=== PATIENT | female | born 1940 | race African-American/Black ===

== ENCOUNTER 2017-02-06 17:38 | Emergency (ER) | payer MEDICARE ==
[~2017-02-06] VITALS: Ht 170.2 cm; Wt 81.6 kg
[2017-02-06] MEDS ORDERED: ONDANSETRON 4 MG/2 ML VIAL IM ONE (17:45)
[2017-02-06] MEDS ORDERED: MORPHINE SULFATE 4 MG/1 ML DISP.SYRIN IM ONE ×2 (17:45→19:15)
--- NOTE | 2017-02-06 17:54 | NUR ---
PT IS CURRENTLY TRES EMOTIONAL AND AGITATED ABOUT WHAT HAPPENED THAT SHE CANNOT REMEMBER HER MEDS AT THE PRESENT TIME.
[2017-02-06] MEDS ORDERED: LOPE2CAP PO (18:13)
[2017-02-06] MEDS ORDERED: [UNRECOGNIZED DRUG - CODE] PO ×2 (18:13→18:16)
[2017-02-06] MEDS ORDERED: OLME40TA12 PO (18:13)
[2017-02-06] MEDS ORDERED: CHOL200010 PO (18:13)
[2017-02-06] MEDS ORDERED: [UNRECOGNIZED DRUG - CODE] PO (18:13)
[2017-02-06] MEDS ORDERED: ASPI81TA31 PO (18:13)
[2017-02-06] MEDS ORDERED: LATA2.5D7 LEFTEYE (18:13)
[2017-02-06] MEDS ORDERED: METO-304 PO (18:13)
[2017-02-06] MEDS ORDERED: [UNRECOGNIZED DRUG - OTHER] (18:13)
[2017-02-06] MEDS ORDERED: MULT-1168 PO (18:13)
[2017-02-06] MEDS ORDERED: ATOR40TA PO (18:13)
[2017-02-06] MEDS ORDERED: BETA1TAB20 PO (18:13)
[2017-02-06] MEDS ORDERED: SERT50TA PO (18:13)
[2017-02-06] MEDS ORDERED: ONDA4TAB8 PO (18:13)
[2017-02-06] MEDS ORDERED: METH113C20 TP ×2 (18:13→18:16)
[2017-02-06] MEDS ORDERED: MUSCLE (18:13)
[2017-02-06] MEDS ORDERED: PIOG30TA10 PO (18:13)
[2017-02-06] MEDS ORDERED: DONE5TAB34 PO (18:13)
[2017-02-06] MEDS ORDERED: DEXT15DR6 EACHEYE (18:13)
[2017-02-06] MEDS ORDERED: [UNRECOGNIZED DRUG - OTHER] (18:13)
[2017-02-06] MEDS ORDERED: DEXT15DR6 OP ×2 (18:13→18:16)
--- NOTE | 2017-02-06 18:42 | NUR ---
DR CELIS AT THE BEDSIDE FOR EVAL AND EXAM.
[2017-02-06] MEDS ORDERED: ACETAMINOPHEN ES 500 MG TABLET PO ONE (19:00)
[2017-02-06 19:04] LABS: BASOPHILS # (AUTO) 0.4 K/uL (0.0-8.0); BASOPHILS % (AUTO) 2.9 % (0.0-2.0); EOSINOPHILS # (AUTO) 0.1 K/uL (0.0-0.7); EOSINOPHILS % (AUTO) 0.4 % (0.0-7.0); HEMATOCRIT 38.5 % (37-47); HEMOGLOBIN 12.5 G/DL (12.0-16.0); LYMPHOCYTES # (AUTO) 2.2 K/UL (0.8-4.8); LYMPHOCYTES % (AUTO) 16.7 % (20.5-51.5); MEAN CORPUSCULAR HEMOGLOBIN 26.1 UUG (27.0-31.0); MEAN CORPUSCULAR HGB CONC 32 g/dL (32.0-37.0); MEAN CORPUSCULAR VOLUME 80.6 FL (81.0-99.0); MONOCYTES # (AUTO) 1.3 K/UL (0.1-1.30); MONOCYTES % (AUTO) 10.1 % (0.0-11.0); NEUTROPHILS # (AUTO) 9.1 K/UL (1.8-8.9); NEUTROPHILS % (AUTO) 69.9 % (38.5-71.5); PLATELET COUNT (AUTO) 382 K/UL (150-450); RED BLOOD CELL COUNT(AUTO) 4.78 MIL/UL (4.2-5.4); WHITE BLOOD COUNT (AUTO) 13.1 K/UL (4.0-11.2)
[2017-02-06 19:05] LABS: CARBON DIOXIDE 33 mmol/L (21-32); CHLORIDE 101 mmol/L (98-107); CREATININE 0.8 mg/dL (0.6-1.3); GLUCOSE 111 mg/dL (74-106); POTASSIUM 3.4 mmol/L (3.5-5.1); UREA NITROGEN, BLOOD 8 mg/dL (7-18)
[2017-02-06] MEDS ORDERED: ACETAMINOPHEN ES 500 MG TABLET ONE (19:05)
--- NOTE | 2017-02-06 19:07 | NUR ---
SBAR report given to Ibeth LAM.
[2017-02-06 19:11] LABS: ALANINE AMINOTRANSFERASE 24 U/L (14-59); ALKALINE PHOSPHATASE 119 U/L (50-136); ASPARTATE AMINOTRANSFERASE 21 U/L (15-37); BILIRUBIN,DIRECT 0.1 mg/dL (0.0-0.2); BILIRUBIN,TOTAL 0.3 mg/dL (0.2-1.0); LIPASE 85 U/L (73-393); TOTAL PROTEIN, SERUM 7.3 g/dL (6.4-8.2)
[2017-02-06] MEDS ORDERED: ONDANSETRON ODT 4 MG TAB.RAPDIS SL ONE (19:15)
[2017-02-06] MEDS ORDERED: ONDANSETRON ODT 4 MG TAB.RAPDIS ONE (19:25)
[2017-02-06] MEDS ORDERED: MORPHINE SULFATE 4 MG/1 ML DISP.SYRIN ONE (19:26)
--- NOTE | 2017-02-06 19:27 | NUR ---
Received report from CAROLE Ortiz. Assumed care of pt at this time. Xray at bedside and xrays obtained. PT c/o severe pain. Dr. Jerome notified. Pt medicated, will monitor for effects of medication. Pt repositioned for comfort. Family at bedside.
--- NOTE | 2017-02-06 20:00 | NUR ---
Pt sts pain improved, describes it as just "aching". Was able to sit pt up without complaint
--- NOTE | 2017-02-06 20:30 | NUR ---
Pt stable for discharge per Dr. Jerome. Pt and daughters given ACI. Both verbalized understanding of dc instructions. Assisted pt to car via w/c
[2017-02-06 20:38] VITALS: BP 136/71
== END 2017-02-06 20:30 | disposition home or self-care (01) ==
LOC: ER 17:38
DX: S32.2XXA Fracture of coccyx, initial encounter for closed fracture (principal); I12.9 Hypertensive chronic kidney disease with stage 1 through stage 4 chronic kidney disease, or unspecified chronic kidney disease; E11.22 Type 2 diabetes mellitus with diabetic chronic kidney disease; N18.9 Chronic kidney disease, unspecified; M48.00 Spinal stenosis, site unspecified; F41.9 Anxiety disorder, unspecified; Z79.82 Long term (current) use of aspirin; W06.XXXA Fall from bed, initial encounter; Y93.89 Activity, other specified; Y92.129 Unspecified place in nursing home as the place of occurrence of the external cause; Y99.9 Unspecified external cause status
CPT/HCPCS: 36415; 72170; 72220; 83690; 85025; A4663; J2270; Q0162

== ENCOUNTER 2018-03-28 18:41 | Inpatient (IN) | payer MEDICARE ==
[~2018-03-28] VITALS: Ht 170.2 cm; Wt 80.3 kg
[~2018-03-28 18:41] MED LIST: ASPI81TA31 PO; ATOR40TA PO; BETA1TAB20 PO; CHOL200010 PO; DEXT15DR6 OP; DONE5TAB34 PO; LATA2.5D7 LEFTEYE; LOPE2CAP PO; METH113C20 TP; METO-357 PO; MULT-1168 PO; OLME40TA12 PO; ONDA4TAB8 PO; PIOG30TA10 PO; SERT50TA PO; [UNRECOGNIZED DRUG - CODE] PO; [UNRECOGNIZED DRUG - CODE] PO
[2018-03-28] MEDS ORDERED: IV NORMAL SALINE 1000 ML BAG IV ONE ×2 (19:00→20:15)
[2018-03-28] MEDS ORDERED: DEXT15DR6 OP (19:24)
[2018-03-28] MEDS ORDERED: DONE10TA44 PO (19:24)
[2018-03-28] MEDS ORDERED: OLAN5TAB3 PO (19:24)
[2018-03-28 19:36] LABS: *BILIRUBIN,URIN NEGATIVE (NEGATIVE); *BLOOD, URINE NEGATIVE (NEGATIVE); *CLARITY,URINE CLEAR (CLEAR); *COLOR,URINE LIGHT YELLOW (YELLOW); *KETONES,URINE NEGATIVE (NEGATIVE); *PROTEIN,URINE NEGATIVE (NEGATIVE); *UROBILINOGEN,URINE 0.2 E.U./dl (NORMAL); LEUKOCYTE ESTERASE ,URINE NEGATIVE (NEGATIVE); NITRITE, URINE NEGATIVE (NEGATIVE); UGLUCOSE 2+ (NEGATIVE)
[2018-03-28 19:38] LABS: BASOPHILS # (AUTO) 0.1 K/uL (0.0-8.0); BASOPHILS % (AUTO) 0.9 % (0.0-2.0); EOSINOPHILS # (AUTO) 0.1 K/uL (0.0-0.7); EOSINOPHILS % (AUTO) 0.8 % (0.0-7.0); HEMATOCRIT 43.4 % (31.2-41.9); LYMPHOCYTES # (AUTO) 2.1 K/uL (20.0-40.0); LYMPHOCYTES % (AUTO) 25.5 % (20.5-51.5); MEAN CORPUSCULAR HEMOGLOBIN 26.7 uug (24.7-32.8); MEAN CORPUSCULAR HGB CONC 32 g/dL (32.3-35.6); MEAN CORPUSCULAR VOLUME 83.2 fL (75.5-95.3); MONOCYTES # (AUTO) 0.6 K/uL (2.0-10.0); MONOCYTES % (AUTO) 7.8 % (0.0-11.0); NEUTROPHILS # (AUTO) 5.3 K/uL (1.8-8.9); PLATELET COUNT (AUTO) 236 K/uL (179-408); RED BLOOD CELL COUNT(AUTO) 5.22 MIL/uL (3.63-4.92); WHITE BLOOD COUNT (AUTO) 8.1 K/uL (3.8-11.8)
[2018-03-28 19:48] LABS: CARBON DIOXIDE 26 mmol/L (21-32); CHLORIDE 93 mmol/L (98-107); CREATININE 1.2 mg/dL (0.6-1.3); POTASSIUM 4.2 mmol/L (3.5-5.1); UREA NITROGEN, BLOOD 11 mg/dL (7-18)
[2018-03-28 19:54] LABS: GLUCOSE 675 mg/dL (74-106)
[2018-03-28 20:07] LABS: SQUAMOUS EPITHELIAL CELL,UR FEW /HPF (NONE SEEN); WBC,URINE 0-3 /HPF (0-3)
[2018-03-28] MEDS ORDERED: INSULIN REGULAR, HUMAN 300 UNIT/3 ML VIAL SQ ONE (20:15)
[2018-03-28] MEDS ORDERED: INSULIN REGULAR, HUMAN 300 UNIT/3 ML VIAL ONE ×2 (20:24→22:26)
--- NOTE | 2018-03-28 21:10 | NUR ---
will continue 2nd liter of NS at 2nd floor
--- NOTE | 2018-03-28 21:11 | NUR ---
Called report to CAROLE Hinds
[2018-03-28] MEDS ORDERED: HYDROCODONE/APAP 5-325MG TABLET PO PRN (21:15)
[2018-03-28] MEDS ORDERED: DEXTROSE 50% 50 ML DISP.SYRIN IV PRN (21:15)
[2018-03-28] MEDS ORDERED: MAGNESIUM HYDROXIDE 30 ML LIQUID UDC PO PRN (21:15)
[2018-03-28] MEDS ORDERED: POTASSIUM CHLORIDE 20 MEQ in IV NS 1000 ML 1,000 ML IV PRN (21:15)
[2018-03-28] MEDS ORDERED: Z GUARD REMEDY PASTE 57 GM TUBE TOP PRN (21:15)
[2018-03-28] MEDS ORDERED: ZOLPIDEM 5 MG TABLET PO PRN (21:15)
[2018-03-28] MEDS ORDERED: ONDANSETRON 4 MG/2 ML VIAL IV PRN (21:15)
[2018-03-28] MEDS ORDERED: INSULIN REGULAR, HUMAN 300 UNIT/3 ML VIAL SQ PRN (21:15)
[2018-03-28] MEDS ORDERED: ACETAMINOPHEN 325 MG TABLET PO PRN (21:15)
[2018-03-28 21:35] VITALS: BP 167/87
[2018-03-28] MEDS ORDERED: INSULIN GLARGINE,HUM 300 UNITS/3 ML CARTRIDGE SQ ONE (22:02)
[2018-03-28] MEDS: TEMAZEPAM 7.5 MG CAPSULE PO PRN (22:44)
[2018-03-28] MEDS: INSULIN GLARGINE,HUM 300 UNITS/3 ML CARTRIDGE SQ SCH (22:47)
[2018-03-28] MEDS ORDERED: POTASSIUM CHLORIDE 20 MEQ in IV 1/2NS 1000 ML 1,000 ML IV PRN (23:00)
[2018-03-28] MEDS ORDERED: BLOOD SUGAR DIAGNOSTIC 1 EACH STRIP VI SCH (23:00)
[2018-03-28] MEDS ORDERED: ENOXAPARIN SODIUM 40 MG/0.4 ML DISP.SYRIN SQ ONE (23:00)
[2018-03-28 23:51] LABS: CARBON DIOXIDE 26 mmol/L (21-32); CHLORIDE 101 mmol/L (98-107); CREATININE 0.9 mg/dL (0.6-1.3); POTASSIUM 3.4 mmol/L (3.5-5.1); UREA NITROGEN, BLOOD 9 mg/dL (7-18)
[2018-03-29 00:01] LABS: GLUCOSE 311 mg/dL (74-106)
[2018-03-29] MEDS ORDERED: DEXTROSE 50% 50 ML DISP.SYRIN IV PRN (01:00)
[2018-03-29] MEDS ORDERED: IV D5 1/2 NS 1000 ML 1,000 ML IV SCH (01:00)
--- NOTE | 2018-03-29 01:00 | NUR ---
NURSING NOTES Admitted patient to room 210; daughter at bedside; ROLAN Lopez saw pt with new orders; also aware of K @ 3.4; Labs in Am; BS 170; fall precaution observed;
[2018-03-29 03:21] VITALS: BP 167/80
--- NOTE | 2018-03-29 06:04 | NUR ---
NURSING NOTES Patient rested well in between care; assisted to bathroom; needs attended; fall precaution maintained.
[2018-03-29 06:27] LABS: BASOPHILS # (AUTO) 0.1 K/uL (0.0-8.0); BASOPHILS % (AUTO) 0.8 % (0.0-2.0); EOSINOPHILS # (AUTO) 0.1 K/uL (0.0-0.7); EOSINOPHILS % (AUTO) 1.4 % (0.0-7.0); HEMOGLOBIN 13.7 g/dL (10.9-14.3); LYMPHOCYTES # (AUTO) 1.9 K/uL (20.0-40.0); LYMPHOCYTES % (AUTO) 28.7 % (20.5-51.5); MEAN CORPUSCULAR HEMOGLOBIN 27.3 uug (24.7-32.8); MEAN CORPUSCULAR HGB CONC 34 g/dL (32.3-35.6); MEAN CORPUSCULAR VOLUME 81.5 fL (75.5-95.3); MONOCYTES # (AUTO) 0.7 K/uL (2.0-10.0); MONOCYTES % (AUTO) 10.4 % (0.0-11.0); NEUTROPHILS # (AUTO) 3.8 K/uL (1.8-8.9); NEUTROPHILS % (AUTO) 58.7 % (38.5-71.5); PLATELET COUNT (AUTO) 218 K/uL (179-408); RED BLOOD CELL COUNT(AUTO) 5.04 MIL/uL (3.63-4.92); WHITE BLOOD COUNT (AUTO) 6.5 K/uL (3.8-11.8)
[2018-03-29 06:36] LABS: CARBON DIOXIDE 26 mmol/L (21-32); CHLORIDE 105 mmol/L (98-107); CHOLESTEROL 117 mg/dL (<200); CREATININE 0.7 mg/dL (0.6-1.3); GLUCOSE 133 mg/dL (74-106); HDL CHOLESTEROL 51 mg/dL (40-60); MAGNESIUM 1.5 mg/dL (1.8-2.4); POTASSIUM 3.4 mmol/L (3.5-5.1); TRIGLYCERIDES 45 MG/DL (30-150); UREA NITROGEN, BLOOD 7 mg/dL (7-18)
[2018-03-29 06:42] LABS: THYROID STIMULATING HORMONE 2.162 mIU/mL (0.358-3.740)
[2018-03-29] MEDS: PANTOPRAZOLE SODIUM 40 MG TABLET.DR PO SCH (06:45)
[2018-03-29] MEDS: BLOOD SUGAR DIAGNOSTIC 1 EACH STRIP VI SCH ×4 (06:45→20:32)
[2018-03-29] MEDS ORDERED: POLYVINYL ALCOHOL OPHT DROPS 15 ML BOTTLE EACHEYE PRN (08:15)
[2018-03-29] MEDS ORDERED: POTASSIUM CHLORIDE 20 MEQ TAB.PRT.SR PO ONE (08:15)
[2018-03-29 08:38] VITALS: BP 139/68
[2018-03-29] MEDS: DONEPEZIL 10 MG TABLET PO SCH (08:39)
[2018-03-29] MEDS: CHOLECALCIFEROL 1,000 UNIT TABLET PO SCH (08:39)
[2018-03-29] MEDS: ASPIRIN 81 MG TAB.CHEW PO SCH (08:39)
[2018-03-29] MEDS: METOPROLOL SUCCINATE XL 50 MG TAB.SR.24H PO SCH (08:39)
[2018-03-29] MEDS: OLANZAPINE 5 MG TABLET PO SCH (08:39)
[2018-03-29] MEDS: MAGNESIUM SULFATE/D5W 100 ML IV SCH ×2 (08:39→11:37)
[2018-03-29] MEDS: INSULIN REGULAR, HUMAN 300 UNIT/3 ML VIAL SQ PRN ×4 (08:41→20:23)
[2018-03-29] MEDS: IV NS 1000 ML 1,000 ML IV PRN (09:48)
[2018-03-29 11:16] VITALS: BP 143/50
[2018-03-29] MEDS ORDERED: LORAZEPAM 0.5 MG TABLET PO PRN ×2 (11:45→16:30)
[2018-03-29 15:18] VITALS: BP 135/65
--- NOTE | 2018-03-29 15:49 | NUR ---
patient anxious, restless, forgetful confused believes she is at her daughters this afternoon, patient behavior becoming increasingly anxious, PRN provided earlier was able to calm her down for a short time. Patient becoming a fall risk on IV fluids. Yang Lopez N.P., notified. PRN Ativan will be increased, Sitter ordered and no psych consult at this time per flight control tower operator.
[2018-03-29] MEDS ORDERED: LORAZEPAM 1 MG TABLET PO PRN (16:45)
[2018-03-29] MEDS ORDERED: SERTRALINE HCL 50 MG TABLET PO SCH ×2 (17:00→21:00)
--- NOTE | 2018-03-29 17:00 | NUR ---
DID NOT ADMINISTER 1700 DOSE OF ZOLOFT, DUE AT HS
[2018-03-29] MEDS ORDERED: LATANOPROST OPHT DROP 2.5 ML BOTTLE LEFTEYE SCH ×2 (18:00→21:00)
[2018-03-29] MEDS ORDERED: ATORVASTATIN 40 MG TABLET PO SCH (18:00)
[2018-03-29 19:00] VITALS: BP 158/73
[2018-03-29] MEDS: INSULIN GLARGINE,HUM 300 UNITS/3 ML CARTRIDGE SQ SCH (20:22)
[2018-03-29] MEDS ORDERED: ENOXAPARIN SODIUM 40 MG/0.4 ML DISP.SYRIN SQ SCH (21:00)
[2018-03-29] MEDS: TEMAZEPAM 7.5 MG CAPSULE PO PRN (21:32)
[2018-03-30 04:00] VITALS: BP 162/75
[2018-03-30 05:32] LABS: BASOPHILS # (AUTO) 0.1 K/uL (0.0-8.0); BASOPHILS % (AUTO) 0.8 % (0.0-2.0); EOSINOPHILS # (AUTO) 0.1 K/uL (0.0-0.7); EOSINOPHILS % (AUTO) 0.7 % (0.0-7.0); HEMATOCRIT 42.5 % (31.2-41.9); HEMOGLOBIN 14.3 g/dL (10.9-14.3); LYMPHOCYTES # (AUTO) 2.6 K/uL (20.0-40.0); MEAN CORPUSCULAR HGB CONC 34 g/dL (32.3-35.6); MEAN CORPUSCULAR VOLUME 80.4 fL (75.5-95.3); MONOCYTES # (AUTO) 0.7 K/uL (2.0-10.0); MONOCYTES % (AUTO) 8.4 % (0.0-11.0); NEUTROPHILS # (AUTO) 5.3 K/uL (1.8-8.9); NEUTROPHILS % (AUTO) 60.1 % (38.5-71.5); PLATELET COUNT (AUTO) 241 K/uL (179-408); RED BLOOD CELL COUNT(AUTO) 5.29 MIL/uL (3.63-4.92); WHITE BLOOD COUNT (AUTO) 8.8 K/uL (3.8-11.8)
[2018-03-30 05:45] LABS: CARBON DIOXIDE 25 mmol/L (21-32); CHLORIDE 105 mmol/L (98-107); CREATININE 0.9 mg/dL (0.6-1.3); GLUCOSE 116 mg/dL (74-106); MAGNESIUM 1.7 mg/dL (1.8-2.4); PHOSPHOROUS 3.2 mg/dL (2.5-4.9); POTASSIUM 3.7 mmol/L (3.5-5.1); UREA NITROGEN, BLOOD 5 mg/dL (7-18)
[2018-03-30] MEDS: PANTOPRAZOLE SODIUM 40 MG TABLET.DR PO SCH (06:25)
[2018-03-30] MEDS: BLOOD SUGAR DIAGNOSTIC 1 EACH STRIP VI SCH ×2 (06:25→12:00)
[2018-03-30] MEDS: IV NS 1000 ML 1,000 ML IV PRN (06:55)
[2018-03-30 08:02] VITALS: BP 146/76
[2018-03-30] MEDS: CHOLECALCIFEROL 1,000 UNIT TABLET PO SCH (08:03)
[2018-03-30] MEDS: ASPIRIN 81 MG TAB.CHEW PO SCH (08:03)
[2018-03-30] MEDS: OLANZAPINE 5 MG TABLET PO SCH (08:04)
[2018-03-30] MEDS: DONEPEZIL 10 MG TABLET PO SCH (08:04)
[2018-03-30] MEDS: METOPROLOL SUCCINATE XL 50 MG TAB.SR.24H PO SCH (08:04)
[2018-03-30] MEDS: MAGNESIUM SULFATE/D5W 100 ML IV SCH ×2 (09:30→10:45)
[2018-03-30 10:51] VITALS: BP 140/68
[2018-03-30] MEDS: INSULIN REGULAR, HUMAN 300 UNIT/3 ML VIAL SQ PRN (12:00)
[2018-03-30] MEDS ORDERED: Insulin Glargine,Hum SQ (12:33)
--- NOTE | 2018-03-30 13:20 | NUR ---
DISCHARGE NOTE patient is alert and oriented to self and place forgetful redirection, redirectable this am compliant with meds, patient instructed on discharge, patient to return to facility with home health to follow for medication management and PT eval, patient skin intact, no photos needed, belonings returned and accounted for, IV line removed and Identification band removed. questions and concerns addressed. no distress noted or reported from patient.
--- NOTE | 2018-03-30 13:20 | NUR ---
patient will follow up with Dr Macias within one week for DM Management
--- NOTE | 2018-03-30 13:50 | NUR ---
patient discharged in stable condition
== END 2018-03-30 13:50 | disposition home health service (06) | DRG 637 ==
LOC: ER 18:43 → MED 21:08
PROVIDERS: ADMIT Hospitalist; ATTEND Hospitalist
DX: E11.00 Type 2 diabetes mellitus with hyperosmolarity without nonketotic hyperglycemic-hyperosmolar coma (NKHHC) (principal); G93.41 Metabolic encephalopathy; E11.65 Type 2 diabetes mellitus with hyperglycemia; E78.5 Hyperlipidemia, unspecified; Z79.84 Long term (current) use of oral hypoglycemic drugs; Z79.82 Long term (current) use of aspirin; F03.90 Unspecified dementia, unspecified severity, without behavioral disturbance, psychotic disturbance, mood disturbance, and anxiety; F41.9 Anxiety disorder, unspecified; Z98.890 Other specified postprocedural states; I25.10 Atherosclerotic heart disease of native coronary artery without angina pectoris; E11.22 Type 2 diabetes mellitus with diabetic chronic kidney disease; I12.9 Hypertensive chronic kidney disease with stage 1 through stage 4 chronic kidney disease, or unspecified chronic kidney disease; N18.2 Chronic kidney disease, stage 2 (mild); E87.6 Hypokalemia; E83.42 Hypomagnesemia; I70.0 Atherosclerosis of aorta; M48.00 Spinal stenosis, site unspecified
CPT/HCPCS: 36415; 70030-TC; 71045; 83735; 84100; 84443; 85025; 93005; A4663; G0378; J1650; J1815; J3475; J3480; J3490; J7030

== ENCOUNTER 2018-10-12 11:08 | Day surgery (SDC) | payer MEDICARE ==
[~2018-10-12 11:08] MED LIST changes: -BETA1TAB20 PO; +DONE10TA44 PO; -DONE5TAB34 PO; +Insulin Glargine,Hum SQ; -LOPE2CAP PO; -METH113C20 TP; +OLAN5TAB3 PO; -OLME40TA12 PO; -ONDA4TAB8 PO; -[UNRECOGNIZED DRUG - CODE] PO; -[UNRECOGNIZED DRUG - CODE] PO
[2018-10-12] MEDS ORDERED: IV NORMAL SALINE 1000 ML BAG IV ONE (11:09)
[2018-10-12] MEDS ORDERED: LIDOCAINE-MPF 2% 5 ML VIAL MC ONE (11:09)
[2018-10-12] MEDS ORDERED: METOCLOPRAMIDE HCL 10 MG/2 ML VIAL IV ONE (11:09)
[2018-10-12] MEDS ORDERED: PROPOFOL 200 MG/20 ML BOTTLE IV ONE (11:09)
[2018-10-12] MEDS ORDERED: CEFAZOLIN 1 G VIAL MC ONE (11:09)
[2018-10-12] MEDS ORDERED: ONDANSETRON 4 MG/2 ML VIAL IV ONE (11:09)
[2018-10-12 11:39] LABS: *BILIRUBIN,URIN NEGATIVE (NEGATIVE); *BLOOD, URINE NEGATIVE (NEGATIVE); *CLARITY,URINE CLEAR (CLEAR); *COLOR,URINE YELLOW (YELLOW); *KETONES,URINE NEGATIVE (NEGATIVE); *UROBILINOGEN,URINE 0.2 E.U./dl (NORMAL); LEUKOCYTE ESTERASE ,URINE 1+ (NEGATIVE); NITRITE, URINE NEGATIVE (NEGATIVE); UGLUCOSE NEGATIVE (NEGATIVE)
[2018-10-12] MEDS ORDERED: POLYMYXIN B SULFATE 500,000 UNITS, BACITRACIN 50,000 UNITS, NORMAL SALINE 20 ML MC ONE ×3 (11:45)
[2018-10-12] MEDS ORDERED: MIDAZOLAM HCL 2 MG/2 ML VIAL ONE (11:55)
[2018-10-12] MEDS ORDERED: FENTANYL CITRATE 100 MCG/2 ML AMPUL ONE (11:56)
[2018-10-12 12:01] LABS: SQUAMOUS EPITHELIAL CELL,UR MANY /HPF (NONE SEEN)
[2018-10-12 12:02] LABS: BACTERIA,URINE NONE SEEN /HPF (NONE SEEN); RBC,URINE 0-3 /HPF (0-3)
[2018-10-12] MEDS ORDERED: BUPIVACAINE/EPI PF 0.25% 30 ML VIAL ONE (12:25)
[2018-10-12] MEDS ORDERED: LIDOCAINE HCL 1% 20 ML VIAL ONE (12:25)
[2018-10-12] MEDS ORDERED: BUPIVACAINE/EPI PF 0.5% 10 ML VIAL ONE (12:28)
== END 2018-10-12 15:15 | disposition home or self-care (01) ==
LOC: DS 11:08
PROVIDERS: ATTEND Surgery
DX: L98.8 Other specified disorders of the skin and subcutaneous tissue (principal); I10 Essential (primary) hypertension; E11.9 Type 2 diabetes mellitus without complications; E78.5 Hyperlipidemia, unspecified; E66.9 Obesity, unspecified; E55.9 Vitamin D deficiency, unspecified; F41.9 Anxiety disorder, unspecified; Z98.84 Bariatric surgery status; Z79.899 Other long term (current) drug therapy; Z79.84 Long term (current) use of oral hypoglycemic drugs; Z79.4 Long term (current) use of insulin
CPT/HCPCS: 21556; 81001; 82962 ×2; J0690; J2250; J2405; J2765; J3010; J3490 ×6; A4649; A4663; J7030

== ENCOUNTER 2020-07-12 17:52 | Inpatient (IN) | payer MEDICARE ==
[~2020-07-12] VITALS: Ht 170.2 cm; Wt 75.7 kg
[2020-07-12] MEDS: POTASSIUM CHLORIDE 50 ML IV SCH (01:30)
[~2020-07-12 17:52] MED LIST changes: +LATA2.5D15 LEFTEYE; -LATA2.5D7 LEFTEYE
[2020-07-12] MEDS ORDERED: MEMA10TA PO (18:49)
[2020-07-12] MEDS ORDERED: CALC-953 PO (18:49)
[2020-07-12] MEDS ORDERED: INSU3INS6 SQ (18:49)
[2020-07-12] MEDS ORDERED: CAPE500T15 PO (18:49)
[2020-07-12] MEDS ORDERED: DOCU100C36 PO (18:49)
[2020-07-12] MEDS ORDERED: ACID1TAB12 PO (18:49)
[2020-07-12] MEDS ORDERED: GLUCERNA SHAKE (18:49)
[2020-07-12] MEDS ORDERED: CRAN450C PO (18:49)
[2020-07-12] MEDS ORDERED: ONDA8TAB13 PO (18:49)
[2020-07-12] MEDS ORDERED: FERR325T28 PO (18:49)
[2020-07-12] MEDS ORDERED: ANAS1TAB50 PO (18:49)
[2020-07-12] MEDS ORDERED: LOSA50TA39 PO (18:49)
[2020-07-12] MEDS ORDERED: ACET-2154 PO (18:49)
--- NOTE | 2020-07-12 19:19 | NUR ---
Pt BIB [facility], reports pt has generalized weakness, worse in last day, BM=540. Pt denies any pain, no complaints, A&Ox1. Pt denies CP, SOB, dizziness, n/v, no distress noted. 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 IV placed 20g left AC. EKG given to oncoming ER MD. Nasal swabs done for Flu and Covid. Lab julianne labs.
[2020-07-12 19:21] LABS: CARBON DIOXIDE 32 mmol/L (21-32); CHLORIDE 109 mmol/L (98-107); GLUCOSE 86 mg/dL (74-106); UREA NITROGEN, BLOOD 13 mg/dL (7-18)
[2020-07-12 19:22] LABS: CREATININE 0.7 mg/dL (0.6-1.3)
[2020-07-12 19:23] LABS: BASOPHILS % (AUTO) 0.5 % (0.0-2.0); EOSINOPHILS # (AUTO) 0.1 K/uL (0.0-0.7); HEMATOCRIT 36.6 % (31.2-41.9); LYMPHOCYTES # (AUTO) 1.9 K/uL (20.0-40.0); LYMPHOCYTES % (AUTO) 29.9 % (20.5-51.5); MEAN CORPUSCULAR HEMOGLOBIN 30.5 uug (24.7-32.8); MEAN CORPUSCULAR HGB CONC 33 g/dL (32.3-35.6); MEAN CORPUSCULAR VOLUME 93.2 fL (75.5-95.3); MONOCYTES # (AUTO) 1.3 K/uL (2.0-10.0); MONOCYTES % (AUTO) 19.3 % (0.0-11.0); NEUTROPHILS # (AUTO) 3.1 K/uL (1.8-8.9); NEUTROPHILS % (AUTO) 48.3 % (38.5-71.5); PLATELET COUNT (AUTO) 256 K/uL (179-408); RED BLOOD CELL COUNT(AUTO) 3.93 MIL/uL (3.63-4.92); WHITE BLOOD COUNT (AUTO) 6.5 K/uL (3.8-11.8)
[2020-07-12 19:24] LABS: POTASSIUM 2.8 mmol/L (3.5-5.1)
[2020-07-12 19:32] LABS: ALANINE AMINOTRANSFERASE 37 U/L (14-59); ALKALINE PHOSPHATASE 112 U/L (50-136); ASPARTATE AMINOTRANSFERASE 55 U/L (15-37); BILIRUBIN,TOTAL 0.6 mg/dL (0.2-1.0); FERRITIN 372 ng/mL (8-252); LACTATE DEHYDROGENASE 403 U/L (81-234); TOTAL PROTEIN, SERUM 6.2 g/dL (6.4-8.2)
[2020-07-12 19:33] LABS: CREATINE KINASE, TOTAL 714 U/L (26-192)
--- NOTE | 2020-07-12 19:45 | NUR ---
Relevant numbers for patient Dr Bui (oncologist) Dr. Humphrey
[2020-07-12] MEDS ORDERED: VANCOMYCIN 1G/D5W 200 ML PIGGYBACK IV ONE (20:15)
[2020-07-12] MEDS ORDERED: PIPERACILLIN SODIUM/TAZOBACTAM 3.375 G in IV DEXTROSE 5% 50 ML IV ONE (20:15)
[2020-07-12] MEDS ORDERED: MAGNESIUM SULFATE/D5W 100 ML ONE ×2 (20:37→22:18)
[2020-07-12] MEDS ORDERED: IV 0.9% SODIUM CHLORID+ 20 KCL 1,000 ML IV ONE (20:45)
[2020-07-12] MEDS ORDERED: POTASSIUM CHLORIDE 20 MEQ TAB.PRT.SR PO ONE (20:45)
[2020-07-12] MEDS ORDERED: MAGNESIUM HYDROXIDE 30 ML LIQUID UDC PO PRN (21:00)
[2020-07-12] MEDS ORDERED: HYDROCODONE/APAP 5-325MG TABLET PO PRN (21:00)
[2020-07-12] MEDS ORDERED: Z GUARD REMEDY PASTE 57 GM TUBE TOP PRN (21:00)
--- NOTE | 2020-07-12 21:00 | NUR ---
Keyur arrived to monitor the patient.
[2020-07-12] MEDS: MAGNESIUM SULFATE/D5W 100 ML IV SCH ×2 (21:10→22:13)
--- NOTE | 2020-07-12 21:10 | NUR ---
RT in room to draw ABG from patient.
[2020-07-12 21:21] LABS: ABG BASE EXCESS 3.1 mmol/L; ABG HCO3 25.8 mmol/L; ABG PH 7.511 (7.350-7.450); ABG PO2 70.2 mmHg (75.0-100.0); ABG SITE LEFT RADIAL; ABG TOTAL HEMOGLOBIN 11.9 G/dL (12.0-16.0); COHb 0.9 % (0.5-1.5); MetHb 0.3 % (0.0-1.5); VENT MODE room air
[2020-07-12] MEDS ORDERED: PIPERACILLIN/TAZOBACTAM/D5W 50 ML IV ONE (21:50)
--- NOTE | 2020-07-12 21:55 | NUR ---
Patient unable to tolerate oral intake of medication. Patient spits back medication. Uncooperative.
[2020-07-12] MEDS ORDERED: VANCOMYCIN IV 200 ML ONE (21:56)
[2020-07-12] MEDS ORDERED: POTASSIUM CHLORIDE 20 MEQ TAB.PRT.SR ONE (21:56)
[2020-07-12] MEDS ORDERED: IV NORMAL SALINE 500 ML IV ONE (22:30)
[2020-07-12] MEDS ORDERED: IV 0.9% SODIUM CHLORID+ 20 KCL 0 ML ONE (22:32)
[2020-07-12] MEDS ORDERED: DEXTROSE 50% 50 ML DISP.SYRIN IV PRN (22:45)
--- NOTE | 2020-07-13 | NUR ---
Pt. admitted to telemetry room 314, under care of ROLAN CHARLES. Belongs List completed, all paperwork transported with patient.
--- NOTE | 2020-07-13 00:13 | NUR ---
Patient brought to tele /covid unit via gurney from Er accompanied by staff nurse.Patient awake alert x1, confused , trying to get out of bed.Pt has 1:1 sitter.On room air .Denies pain. No s/s of distress noted.IV on right FA 22 g started on kcl 10 meq/50 ml .No adverse reaction. Will continue to monitor.
[2020-07-13 04:00] VITALS: BP 156/78
[2020-07-13] MEDS ORDERED: PIPERACILLIN SODIUM/TAZOBACTAM 4.5 G in IV DEXTROSE 5% 50 ML IV ONE (04:00)
[2020-07-13] MEDS: POTASSIUM CHLORIDE 50 ML IV SCH ×3 (04:10→04:56)
--- NOTE | 2020-07-13 04:26 | NUR ---
Patient noted being combative ,restless ,tying to pull out her IVs and trying to get out of bed,unable to follow commands.Anne-Marei Bhat made aware with new order given noted and carried out.Soft restraints and mittens applied to both hands.Will continue to monitor.
[2020-07-13] MEDS ORDERED: PIPERACILLIN/TAZO 4.5 GM VIAL IV ONE (04:35)
[2020-07-13] MEDS: LORAZEPAM 2 MG/1 ML VIAL IV PRN (05:48)
[2020-07-13] MEDS: PANTOPRAZOLE SODIUM 40 MG TABLET.DR PO SCH (06:21)
[2020-07-13] MEDS: BLOOD SUGAR DIAGNOSTIC 1 EACH STRIP VI SCH ×4 (06:24→21:51)
[2020-07-13] MEDS: IV D5W 1000ML 1,000 ML IV PRN (06:25)
[2020-07-13] MEDS ORDERED: POLYVINYL ALCOHOL OPHT DROPS 15 ML BOTTLE OP PRN (06:30)
[2020-07-13 06:40] LABS: BASOPHILS % (AUTO) 0.5 % (0.0-2.0); EOSINOPHILS # (AUTO) 0.1 K/uL (0.0-0.7); HEMATOCRIT 36.1 % (31.2-41.9); LYMPHOCYTES # (AUTO) 2.1 K/uL (20.0-40.0); LYMPHOCYTES % (AUTO) 27.8 % (20.5-51.5); MEAN CORPUSCULAR HEMOGLOBIN 31.1 uug (24.7-32.8); MEAN CORPUSCULAR HGB CONC 33 g/dL (32.3-35.6); MEAN CORPUSCULAR VOLUME 93.6 fL (75.5-95.3); MONOCYTES # (AUTO) 1.2 K/uL (2.0-10.0); MONOCYTES % (AUTO) 15.5 % (0.0-11.0); NEUTROPHILS # (AUTO) 4.2 K/uL (1.8-8.9); NEUTROPHILS % (AUTO) 55.2 % (38.5-71.5); PLATELET COUNT (AUTO) 272 K/uL (179-408); RED BLOOD CELL COUNT(AUTO) 3.86 MIL/uL (3.63-4.92); WHITE BLOOD COUNT (AUTO) 7.6 K/uL (3.8-11.8)
[2020-07-13 06:56] LABS: CREATININE 0.8 mg/dL (0.6-1.3); MAGNESIUM 2.3 mg/dL (1.8-2.4); PHOSPHOROUS 2.3 mg/dL (2.5-4.9); POTASSIUM 3.6 mmol/L (3.5-5.1)
--- NOTE | 2020-07-13 07:52 | NUR ---
Received patient sleeping. Breathing even and non labored. No resp distress. Bed kept on low. Call light within reach. Safety precautions at all times. Will continue to monitor.
[2020-07-13] MEDS: ASPIRIN 81 MG TAB.CHEW PO SCH (08:34)
[2020-07-13] MEDS: ACIDOPHILUS/BULGARICUS CHEW TAB PO SCH (08:34)
[2020-07-13] MEDS: OLANZAPINE 5 MG TABLET PO SCH (08:35)
[2020-07-13] MEDS: LOSARTAN POTASSIUM 50 MG TABLET PO SCH (08:35)
[2020-07-13] MEDS: CHOLECALCIFEROL 1,000 UNIT TABLET PO SCH (08:35)
[2020-07-13] MEDS: MEMANTINE HCL 10 MG TABLET PO SCH ×2 (08:35→16:08)
[2020-07-13] MEDS: DOCUSATE SODIUM 100 MG CAPSULE PO SCH ×3 (08:36→16:08)
[2020-07-13] MEDS: MULTIVIT, IRON, MIN NO. 8, FA TABLET PO SCH (08:36)
[2020-07-13] MEDS: METOPROLOL SUCCINATE XL 50 MG TAB.SR.24H PO SCH (08:36)
[2020-07-13] MEDS: DONEPEZIL 10 MG TABLET PO SCH (08:36)
[2020-07-13] MEDS ORDERED: CAPECITABINE 500 MG PO SCH (09:00)
[2020-07-13] MEDS: ENOXAPARIN SODIUM 40 MG/0.4 ML DISP.SYRIN SQ SCH (09:09)
[2020-07-13] MEDS ORDERED: VANCOMYCIN IV 1,000 MG in IV DEXTROSE 5% 250 ML IV SCH (10:00)
--- NOTE | 2020-07-13 11:30 | NUR ---
Received call from pharmacy that medication Capecitabine unavailable in our pharmacy and if family can provide. Called dtrs Porfirio and left voicemail.
[2020-07-13] MEDS ORDERED: PIPERACILLIN SODIUM/TAZOBACTAM 4.5 G in IV DEXTROSE 5% 50 ML IV SCH (12:00)
[2020-07-13] MEDS: INSULIN REGULAR, HUMAN 300 UNIT/3 ML VIAL SQ PRN ×2 (12:03→21:54)
[2020-07-13] MEDS: ANASTROZOLE 1 MG TABLET PO SCH (12:04)
[2020-07-13 13:50] LABS: *BILIRUBIN,URIN NEGATIVE (NEGATIVE); *BLOOD, URINE NEGATIVE (NEGATIVE); *COLOR,URINE YELLOW (YELLOW); *KETONES,URINE TRACE (NEGATIVE); *UROBILINOGEN,URINE 0.2 E.U./dl (NORMAL); LEUKOCYTE ESTERASE ,URINE NEGATIVE (NEGATIVE); NITRITE, URINE NEGATIVE (NEGATIVE); PH,URINE 5.5 (5.0-8.0); UGLUCOSE NEGATIVE (NEGATIVE)
--- NOTE | 2020-07-13 14:21 | NUR ---
Received call from patient's dtr Artem and informed regarding medication Capecitabine. She said she will call the facility ([facility]) and ask the charge nurse.
[2020-07-13] MEDS ORDERED: NEUTRA PHOS PACKET PO ONE (15:30)
[2020-07-13 15:31] LABS: EOSINOPHILS % (MANUAL) 2 % (0-8); LYMPHOCYTES % (MANUAL) 33 % (20-40); MONOCYTES % (MANUAL) 14 % (2-10); NEUTROPHILS % (MANUAL) 51 % (42-75)
[2020-07-13 15:43] LABS: *CLARITY,URINE CLOUDY (CLEAR); BACTERIA,URINE FEW /HPF (NONE SEEN); RBC,URINE 0-3 /HPF (0-3)
[2020-07-13 15:44] LABS: SQUAMOUS EPITHELIAL CELL,UR FEW /HPF (NONE SEEN); URINE AMORPHOUS URATE MANY /HPF
[2020-07-13] MEDS: SERTRALINE HCL 50 MG TABLET PO SCH (17:10)
--- NOTE | 2020-07-13 17:30 | NUR ---
Patient alert and responsive, cooperative. Safety precautions at all times. Bed kept low. Call light within reach. All due meds given and tolerated. Will continue to monitor.
[2020-07-13 20:00] VITALS: BP 125/46
--- NOTE | 2020-07-13 20:58 | NUR ---
Patient received in bed ; awake ; medications given and tolerated well. Safety precautions in place . Will continue to monitor.
[2020-07-13] MEDS: INSULIN GLARGINE,HUM 300 UNITS/3 ML CARTRIDGE SQ SCH (21:53)
[2020-07-13] MEDS: ATORVASTATIN 40 MG TABLET PO SCH (22:02)
[2020-07-13] MEDS: LATANOPROST OPHT DROP 2.5 ML BOTTLE LEFTEYE SCH (22:03)
[2020-07-14] VITALS: BP 108/45
--- NOTE | 2020-07-14 02:45 | NUR ---
P.t in bed lying in bed comfortably. Breath sounds are even and unlabored, no sob noted. Denies any pain and discomfort at this time. P.t is seen by Dr. Knott with both daughters on face time. Discussed members current medical status. CM spoke with daughter regarding patients medication Capacitabine (cancer medication) as noted that they will provide it, daughter ([place]) noted that medication is stopped at this time per Oncologist until she leaves the hospital. CM notified pharmacy and relayed to Tommie noted. All needs are met. Safety measure rendered. Call light within reach.
[2020-07-14 04:00] VITALS: BP 119/57
[2020-07-14 06:28] LABS: BASOPHILS # (AUTO) 0.1 K/uL (0.0-8.0); BASOPHILS % (AUTO) 0.8 % (0.0-2.0); EOSINOPHILS # (AUTO) 0.1 K/uL (0.0-0.7); EOSINOPHILS % (AUTO) 1.9 % (0.0-7.0); HEMATOCRIT 36.2 % (31.2-41.9); HEMOGLOBIN 11.9 g/dL (10.9-14.3); LYMPHOCYTES # (AUTO) 2.1 K/uL (20.0-40.0); LYMPHOCYTES % (AUTO) 28.7 % (20.5-51.5); MEAN CORPUSCULAR HEMOGLOBIN 30.6 uug (24.7-32.8); MEAN CORPUSCULAR HGB CONC 33 g/dL (32.3-35.6); MEAN CORPUSCULAR VOLUME 93.4 fL (75.5-95.3); MONOCYTES % (AUTO) 13.2 % (0.0-11.0); NEUTROPHILS % (AUTO) 55.4 % (38.5-71.5); PLATELET COUNT (AUTO) 302 K/uL (179-408); RED BLOOD CELL COUNT(AUTO) 3.88 MIL/uL (3.63-4.92); WHITE BLOOD COUNT (AUTO) 7.2 K/uL (3.8-11.8)
[2020-07-14] MEDS: PANTOPRAZOLE SODIUM 40 MG TABLET.DR PO SCH (06:39)
[2020-07-14 06:55] LABS: CREATININE 0.8 mg/dL (0.6-1.3); MAGNESIUM 2.3 mg/dL (1.8-2.4); PHOSPHOROUS 2.8 mg/dL (2.5-4.9); POTASSIUM 3.6 mmol/L (3.5-5.1)
--- NOTE | 2020-07-14 07:09 | NUR ---
Patient with eyes closed ,breathing non labored and even. Scheduled medications given : patient tolerated well. Safety measures in place.
[2020-07-14 07:30] VITALS: BP_SYST 157; BP_DIAS 81; BP_DIAS 82
[2020-07-14] MEDS: BLOOD SUGAR DIAGNOSTIC 1 EACH STRIP VI SCH ×4 (07:49→20:26)
--- NOTE | 2020-07-14 08:00 | NUR ---
Received p.t in bed awake and alert, assisted to the bathroom with sitter voided x1. Breaths sounds is even and unlabored. Denies any pain and discomfort. Occasionally sits in bed. Sitter at beside. Vitals are WNL. Call light within reach and safety measure in place.
[2020-07-14] MEDS: ACIDOPHILUS/BULGARICUS CHEW TAB PO SCH (08:43)
[2020-07-14] MEDS: CHOLECALCIFEROL 1,000 UNIT TABLET PO SCH (08:43)
[2020-07-14] MEDS: DOCUSATE SODIUM 100 MG CAPSULE PO SCH ×3 (08:43→17:20)
[2020-07-14] MEDS: ASPIRIN 81 MG TAB.CHEW PO SCH (08:43)
[2020-07-14] MEDS: METOPROLOL SUCCINATE XL 50 MG TAB.SR.24H PO SCH (08:44)
[2020-07-14] MEDS: DONEPEZIL 10 MG TABLET PO SCH (08:44)
[2020-07-14] MEDS: MULTIVIT, IRON, MIN NO. 8, FA TABLET PO SCH (08:44)
[2020-07-14] MEDS: OLANZAPINE 5 MG TABLET PO SCH (08:45)
[2020-07-14] MEDS: MEMANTINE HCL 10 MG TABLET PO SCH ×2 (08:45→17:20)
[2020-07-14] MEDS: LOSARTAN POTASSIUM 50 MG TABLET PO SCH (08:45)
[2020-07-14] MEDS: ENOXAPARIN SODIUM 40 MG/0.4 ML DISP.SYRIN SQ SCH (08:56)
[2020-07-14 11:51] VITALS: BP 155/64
[2020-07-14] MEDS: ANASTROZOLE 1 MG TABLET PO SCH (12:58)
[2020-07-14] MEDS: LORAZEPAM 2 MG/1 ML VIAL IV PRN (15:42)
[2020-07-14 15:48] VITALS: BP 136/47
[2020-07-14] MEDS: IV D5W 1000ML 1,000 ML IV PRN (17:00)
[2020-07-14] MEDS: SERTRALINE HCL 50 MG TABLET PO SCH (17:20)
--- NOTE | 2020-07-14 19:15 | NUR ---
P.t is in bed sound asleep. Breathing is even and unlabored on room air, no sob noted. No facial grimacing and acute distress noted. Sitter at bedside, on continues monitoring. I.V line is patent. Vitals signs is WNL. All due meds taken as ordered. Endorsed to next shift nurse. Safety measures rendered and call light within reach.
--- NOTE | 2020-07-14 20:00 | NUR ---
Patient received in bed with eyes closed.Breathing even and non labored. Scheduled medications given: patient tolerated well. Safety measures in place : call light with in reach and bed in low position and locked.
[2020-07-14] MEDS: ATORVASTATIN 40 MG TABLET PO SCH (20:19)
[2020-07-14] MEDS: INSULIN GLARGINE,HUM 300 UNITS/3 ML CARTRIDGE SQ SCH (20:28)
[2020-07-14] MEDS: INSULIN REGULAR, HUMAN 300 UNIT/3 ML VIAL SQ PRN (20:35)
[2020-07-14 20:46] VITALS: BP 147/68
[2020-07-14] MEDS: LATANOPROST OPHT DROP 2.5 ML BOTTLE LEFTEYE SCH (21:00)
[2020-07-15] VITALS: BP 138/70
[2020-07-15 04:00] VITALS: BP 147/72
[2020-07-15] MEDS: IV D5W 1000ML 1,000 ML IV PRN ×2 (05:26→21:03)
--- NOTE | 2020-07-15 06:01 | NUR ---
Patient rested with eyes closed .No signs of distress noted : breathing normal and non labored. Scheduled medications given and tolerated well. Patient was up to the bathroom with assistance. Safety measures in place : call light within reach and bed locked.
[2020-07-15] MEDS: PANTOPRAZOLE SODIUM 40 MG TABLET.DR PO SCH (06:21)
[2020-07-15] MEDS: BLOOD SUGAR DIAGNOSTIC 1 EACH STRIP VI SCH ×4 (06:25→20:57)
[2020-07-15 06:37] LABS: BASOPHILS # (AUTO) 0.2 K/uL (0.0-8.0); BASOPHILS % (AUTO) 4.3 % (0.0-2.0); EOSINOPHILS # (AUTO) 0.1 K/uL (0.0-0.7); EOSINOPHILS % (AUTO) 1.9 % (0.0-7.0); HEMATOCRIT 37.4 % (31.2-41.9); HEMOGLOBIN 12.3 g/dL (10.9-14.3); LYMPHOCYTES # (AUTO) 2.3 K/uL (20.0-40.0); LYMPHOCYTES % (AUTO) 44.1 % (20.5-51.5); MEAN CORPUSCULAR HEMOGLOBIN 30.9 uug (24.7-32.8); MEAN CORPUSCULAR HGB CONC 33 g/dL (32.3-35.6); MONOCYTES # (AUTO) 0.7 K/uL (2.0-10.0); MONOCYTES % (AUTO) 13.4 % (0.0-11.0); NEUTROPHILS # (AUTO) 1.9 K/uL (1.8-8.9); NEUTROPHILS % (AUTO) 36.3 % (38.5-71.5); PLATELET COUNT (AUTO) 311 K/uL (179-408); RED BLOOD CELL COUNT(AUTO) 3.98 MIL/uL (3.63-4.92); WHITE BLOOD COUNT (AUTO) 5.3 K/uL (3.8-11.8)
[2020-07-15 07:20] LABS: BILIRUBIN,TOTAL 0.6 mg/dL (0.2-1.0); CREATININE 0.8 mg/dL (0.6-1.3); MAGNESIUM 2.2 mg/dL (1.8-2.4); PHOSPHOROUS 2.9 mg/dL (2.5-4.9); POTASSIUM 3.2 mmol/L (3.5-5.1); TOTAL PROTEIN, SERUM 6.3 g/dL (6.4-8.2)
--- NOTE | 2020-07-15 07:45 | NUR ---
Received patient awake and responsive. With sitter and is being assisted to the bathroom per patient's request. On RA 97%, no respiratory distress noted. Patient kept comfortable. Needs attended. Will continue to monitor.
[2020-07-15] MEDS: DOCUSATE SODIUM 100 MG CAPSULE PO SCH ×3 (08:26→16:25)
[2020-07-15] MEDS: ASPIRIN 81 MG TAB.CHEW PO SCH (08:26)
[2020-07-15] MEDS: OLANZAPINE 5 MG TABLET PO SCH (08:27)
[2020-07-15] MEDS: CHOLECALCIFEROL 1,000 UNIT TABLET PO SCH (08:27)
[2020-07-15] MEDS: ACIDOPHILUS/BULGARICUS CHEW TAB PO SCH (08:27)
[2020-07-15] MEDS: DONEPEZIL 10 MG TABLET PO SCH (08:27)
[2020-07-15] MEDS: MULTIVIT, IRON, MIN NO. 8, FA TABLET PO SCH (08:28)
[2020-07-15] MEDS: MEMANTINE HCL 10 MG TABLET PO SCH ×2 (08:28→16:25)
[2020-07-15 08:29] VITALS: BP 158/77
[2020-07-15] MEDS: LOSARTAN POTASSIUM 50 MG TABLET PO SCH (08:32)
[2020-07-15] MEDS: METOPROLOL SUCCINATE XL 50 MG TAB.SR.24H PO SCH (08:32)
[2020-07-15] MEDS: ANASTROZOLE 1 MG TABLET PO SCH (08:32)
[2020-07-15] MEDS: ENOXAPARIN SODIUM 40 MG/0.4 ML DISP.SYRIN SQ SCH (08:33)
[2020-07-15] MEDS ORDERED: POTASSIUM CHLORIDE 20 MEQ TAB.PRT.SR PO ONE (09:45)
[2020-07-15 12:00] VITALS: BP 154/68
[2020-07-15] MEDS: INSULIN REGULAR, HUMAN 300 UNIT/3 ML VIAL SQ PRN ×2 (13:59→21:12)
--- NOTE | 2020-07-15 15:32 | NUR ---
Called noe Mcgill for facetime but she said she's at MD office and unable to talk at this time. Called noe Reyes but call went straight to voicemail. Unable to leave vm due to not set up yet. Will try later. Patient made aware.
[2020-07-15 16:00] VITALS: BP 167/60
--- NOTE | 2020-07-15 16:30 | NUR ---
Patient was able to facetime with dtr Amy. No complaints at this time. Patient is kept comfortable. Safety precautions in place. Sitter with patient at all times. Will continue to monitor.
[2020-07-15] MEDS: SERTRALINE HCL 50 MG TABLET PO SCH (17:03)
--- NOTE | 2020-07-15 19:30 | NUR ---
Pt received in bed with sitter at bedside. Denies pain, no SOB noted. Pt is confused. SR on monitor. Able to ambulate to bathroom with assist from sitter. IV is patent and running fluids with no s/s of infiltration. No other issues or concerns at this time.
[2020-07-15 20:00] VITALS: BP 135/65
[2020-07-15] MEDS: LATANOPROST OPHT DROP 2.5 ML BOTTLE LEFTEYE SCH (20:49)
[2020-07-15] MEDS: ATORVASTATIN 40 MG TABLET PO SCH (20:49)
[2020-07-15] MEDS: INSULIN GLARGINE,HUM 300 UNITS/3 ML CARTRIDGE SQ SCH (21:12)
[2020-07-16] VITALS: BP 146/56
[2020-07-16 04:00] VITALS: BP 151/54
[2020-07-16] MEDS: PANTOPRAZOLE SODIUM 40 MG TABLET.DR PO SCH (06:11)
[2020-07-16] MEDS: BLOOD SUGAR DIAGNOSTIC 1 EACH STRIP VI SCH ×4 (06:52→21:06)
[2020-07-16 07:41] LABS: CREATININE 0.7 mg/dL (0.6-1.3); POTASSIUM 3.6 mmol/L (3.5-5.1)
[2020-07-16 07:46] VITALS: BP 142/67
--- NOTE | 2020-07-16 08:00 | NUR ---
Awake, confused, sitting on the chair 1:1 sitter at bedside. IVF infusing
[2020-07-16] MEDS: DONEPEZIL 10 MG TABLET PO SCH (09:48)
[2020-07-16] MEDS: ACIDOPHILUS/BULGARICUS CHEW TAB PO SCH (09:49)
[2020-07-16] MEDS: LOSARTAN POTASSIUM 50 MG TABLET PO SCH (09:49)
[2020-07-16] MEDS: DOCUSATE SODIUM 100 MG CAPSULE PO SCH ×3 (09:49→17:52)
[2020-07-16] MEDS: ASPIRIN 81 MG TAB.CHEW PO SCH (09:49)
[2020-07-16] MEDS: MEMANTINE HCL 10 MG TABLET PO SCH ×2 (09:50→17:52)
[2020-07-16] MEDS: MULTIVIT, IRON, MIN NO. 8, FA TABLET PO SCH (09:50)
[2020-07-16] MEDS: CHOLECALCIFEROL 1,000 UNIT TABLET PO SCH (09:50)
[2020-07-16] MEDS: METOPROLOL SUCCINATE XL 50 MG TAB.SR.24H PO SCH (09:50)
[2020-07-16] MEDS: ENOXAPARIN SODIUM 40 MG/0.4 ML DISP.SYRIN SQ SCH (09:53)
[2020-07-16] MEDS: OLANZAPINE 5 MG TABLET PO SCH (09:58)
[2020-07-16] MEDS: ANASTROZOLE 1 MG TABLET PO SCH (10:01)
[2020-07-16] MEDS: IV D5W 1000ML 1,000 ML IV PRN (10:38)
[2020-07-16] MEDS: AMLODIPINE 5 MG TABLET PO SCH (10:41)
[2020-07-16 11:14] VITALS: BP 138/79
--- NOTE | 2020-07-16 12:00 | NUR ---
IV site leaking, attempted reinsertion, unsuccessful. For midline insertion, spoke with pharmacist regarding Remdesivir.
[2020-07-16] MEDS: REMDESIVIR (CHARGED) 100 MG in IV NORMAL SALINE 230 ML IV SCH ×2 (12:59→21:45)
[2020-07-16 15:14] VITALS: BP 115/72
[2020-07-16] MEDS: SERTRALINE HCL 50 MG TABLET PO SCH (17:52)
--- NOTE | 2020-07-16 19:00 | NUR ---
Still for midline insertion and Remdesivir to be started. Endorsed for further care and eval
--- NOTE | 2020-07-16 19:30 | NUR ---
Pt received in bed, confused. Does not appear to be in any distress at this time. Sitter at bedside. Waiting on midline insertion, all supplies are at bedside. Pt on RA sating at 97%. SR on monitor. No other issues or concerns at this time.
[2020-07-16 20:00] VITALS: BP 142/59
[2020-07-16] MEDS: LATANOPROST OPHT DROP 2.5 ML BOTTLE LEFTEYE SCH (20:46)
[2020-07-16] MEDS: ATORVASTATIN 40 MG TABLET PO SCH (21:06)
[2020-07-16] MEDS: INSULIN GLARGINE,HUM 300 UNITS/3 ML CARTRIDGE SQ SCH (21:40)
[2020-07-16] MEDS: LORAZEPAM 2 MG/1 ML VIAL IV PRN (23:13)
[2020-07-17] VITALS (7 sets, daily range): BP systolic 103–156; BP diastolic 64–74
[2020-07-17] MEDS: PANTOPRAZOLE SODIUM 40 MG TABLET.DR PO SCH (06:04)
[2020-07-17] MEDS: BLOOD SUGAR DIAGNOSTIC 1 EACH STRIP VI SCH ×4 (06:31→20:18)
[2020-07-17 07:00] LABS: BASOPHILS # (AUTO) 0.1 K/uL (0.0-8.0); BASOPHILS % (AUTO) 1.3 % (0.0-2.0); EOSINOPHILS # (AUTO) 0.1 K/uL (0.0-0.7); EOSINOPHILS % (AUTO) 1.1 % (0.0-7.0); HEMATOCRIT 40.2 % (31.2-41.9); HEMOGLOBIN 12.9 g/dL (10.9-14.3); LYMPHOCYTES # (AUTO) 1.8 K/uL (20.0-40.0); LYMPHOCYTES % (AUTO) 38.5 % (20.5-51.5); MEAN CORPUSCULAR HEMOGLOBIN 30.6 uug (24.7-32.8); MEAN CORPUSCULAR HGB CONC 32 g/dL (32.3-35.6); MEAN CORPUSCULAR VOLUME 95.1 fL (75.5-95.3); MONOCYTES # (AUTO) 0.8 K/uL (2.0-10.0); MONOCYTES % (AUTO) 17.8 % (0.0-11.0); NEUTROPHILS # (AUTO) 1.9 K/uL (1.8-8.9); NEUTROPHILS % (AUTO) 41.3 % (38.5-71.5); PLATELET COUNT (AUTO) 361 K/uL (179-408); RED BLOOD CELL COUNT(AUTO) 4.23 MIL/uL (3.63-4.92); WHITE BLOOD COUNT (AUTO) 4.6 K/uL (3.8-11.8)
--- NOTE | 2020-07-17 07:30 | NUR ---
pt resting in bed, seems to be confused, able to verbalize short sentences. NSR on tele monitor, pt on room air saturating at 98%. Pt has a sitter, IV access on the right upper arm midline IVF D5W infusing at 80ml/her. Bed in low and locked position, Isolation and safety precautions in place. Bed alarm within reach, fall precautions in place, will continue to monitor.
[2020-07-17 07:43] LABS: CREATININE 0.8 mg/dL (0.6-1.3); MAGNESIUM 1.7 mg/dL (1.8-2.4); PHOSPHOROUS 3.7 mg/dL (2.5-4.9); POTASSIUM 3.6 mmol/L (3.5-5.1)
[2020-07-17 08:33] LABS: BILIRUBIN,DIRECT 0.2 mg/dL (0.0-0.2); BILIRUBIN,TOTAL 0.4 mg/dL (0.2-1.0); TOTAL PROTEIN, SERUM 6.6 g/dL (6.4-8.2)
[2020-07-17] MEDS: ENOXAPARIN SODIUM 40 MG/0.4 ML DISP.SYRIN SQ SCH (08:51)
[2020-07-17] MEDS: CHOLECALCIFEROL 1,000 UNIT TABLET PO SCH (08:53)
[2020-07-17] MEDS: ANASTROZOLE 1 MG TABLET PO SCH (08:53)
[2020-07-17] MEDS: ASPIRIN 81 MG TAB.CHEW PO SCH (08:54)
[2020-07-17] MEDS: ACIDOPHILUS/BULGARICUS CHEW TAB PO SCH (08:54)
[2020-07-17] MEDS: MULTIVIT, IRON, MIN NO. 8, FA TABLET PO SCH (08:54)
[2020-07-17] MEDS: AMLODIPINE 5 MG TABLET PO SCH (08:55)
[2020-07-17] MEDS: LOSARTAN POTASSIUM 50 MG TABLET PO SCH (08:55)
[2020-07-17] MEDS: OLANZAPINE 5 MG TABLET PO SCH (08:56)
[2020-07-17] MEDS: METOPROLOL SUCCINATE XL 50 MG TAB.SR.24H PO SCH (08:56)
[2020-07-17] MEDS: DOCUSATE SODIUM 100 MG CAPSULE PO SCH ×3 (08:56→17:43)
[2020-07-17] MEDS: DONEPEZIL 10 MG TABLET PO SCH (08:56)
[2020-07-17] MEDS: MEMANTINE HCL 10 MG TABLET PO SCH ×2 (08:56→17:43)
[2020-07-17] MEDS: PROTEIN SUPPLEMENT (PROSTAT) 30 ML LIQUID PO SCH (08:57)
[2020-07-17] MEDS: MAGNESIUM SULFATE/D5W 100 ML IV SCH ×2 (10:39→11:51)
[2020-07-17] MEDS: INSULIN REGULAR, HUMAN 300 UNIT/3 ML VIAL SQ PRN (11:45)
[2020-07-17] MEDS ORDERED: REMDESIVIR (CHARGED) 100 MG in IV NORMAL SALINE 230 ML IV SCH (12:00)
[2020-07-17] MEDS: IV D5W 1000ML 1,000 ML IV PRN (14:37)
[2020-07-17 15:20] LABS: BAND % (MANUAL) 1 % (0-10); BASOPHILS % (MANUAL) 1 % (0-2); EOSINOPHILS % (MANUAL) 1 % (0-8); LYMPHOCYTES % (MANUAL) 41 % (20-40); MONOCYTES % (MANUAL) 16 % (2-10); NEUTROPHILS % (MANUAL) 40 % (42-75)
[2020-07-17] MEDS: SERTRALINE HCL 50 MG TABLET PO SCH (17:43)
--- NOTE | 2020-07-17 18:33 | NUR ---
pt resting in bed, A/Ox2, pt on room air saturating at 98%, no signs of distress noted. IV access on the right upper arm midline 18g, IVF infusing D5W at 80cc. Medications given as ordered, sitter at bedside, Pt was able to face time family this evening, spoke to both daughters. Bed in low and locked position, isolation precautions in place, safety precautions in place, call light within reach, Will endorse to oncoming nurse.
[2020-07-17] MEDS: ATORVASTATIN 40 MG TABLET PO SCH (20:08)
[2020-07-17] MEDS: LATANOPROST OPHT DROP 2.5 ML BOTTLE LEFTEYE SCH (20:08)
[2020-07-17] MEDS: INSULIN GLARGINE,HUM 300 UNITS/3 ML CARTRIDGE SQ SCH (20:24)
--- NOTE | 2020-07-17 21:14 | NUR ---
Pt received in bed, sleeping, arouses easily. Does not appear to be in any distress at this time. Pt is on RA sating at 97%. Bed is locked and in lowest position, alarm on and sitter at bedside. SR on monitor. No other issues or concerns at this time.
[2020-07-18 01:07] VITALS: BP 127/56
[2020-07-18] MEDS: IV D5W 1000ML 1,000 ML IV PRN ×2 (05:29→21:27)
[2020-07-18 05:39] VITALS: BP 117/56
[2020-07-18] MEDS: PANTOPRAZOLE SODIUM 40 MG TABLET.DR PO SCH (06:16)
[2020-07-18] MEDS: BLOOD SUGAR DIAGNOSTIC 1 EACH STRIP VI SCH ×4 (06:30→21:12)
[2020-07-18 07:27] LABS: BASOPHILS # (AUTO) 0.1 K/uL (0.0-8.0); BASOPHILS % (AUTO) 0.9 % (0.0-2.0); EOSINOPHILS # (AUTO) 0.1 K/uL (0.0-0.7); EOSINOPHILS % (AUTO) 1.8 % (0.0-7.0); HEMATOCRIT 35.7 % (31.2-41.9); HEMOGLOBIN 11.7 g/dL (10.9-14.3); LYMPHOCYTES # (AUTO) 2.7 K/uL (20.0-40.0); LYMPHOCYTES % (AUTO) 45.5 % (20.5-51.5); MEAN CORPUSCULAR HGB CONC 33 g/dL (32.3-35.6); MEAN CORPUSCULAR VOLUME 94.1 fL (75.5-95.3); MONOCYTES % (AUTO) 17.1 % (0.0-11.0); NEUTROPHILS # (AUTO) 2.1 K/uL (1.8-8.9); NEUTROPHILS % (AUTO) 34.7 % (38.5-71.5); PLATELET COUNT (AUTO) 334 K/uL (179-408); RED BLOOD CELL COUNT(AUTO) 3.79 MIL/uL (3.63-4.92)
--- NOTE | 2020-07-18 07:30 | NUR ---
received report on pt. pt awake resting in, A/Ox2, on room air saturating at 98%. SR on tele monitor, IV access on the right upper arm midline 18g IVF infusing at 80cc/hr. Sitter at bedside, bed in low and locked position, call light within reach, bed alarm on. Isolation an safety precautions in place. Will continue to monitor.
[2020-07-18 07:41] LABS: BILIRUBIN,TOTAL 0.4 mg/dL (0.2-1.0); CREATININE 0.8 mg/dL (0.6-1.3); PHOSPHOROUS 3.6 mg/dL (2.5-4.9); POTASSIUM 3.7 mmol/L (3.5-5.1); TOTAL PROTEIN, SERUM 5.8 g/dL (6.4-8.2)
[2020-07-18] MEDS: PROTEIN SUPPLEMENT (PROSTAT) 30 ML LIQUID PO SCH (08:27)
[2020-07-18] MEDS: MEMANTINE HCL 10 MG TABLET PO SCH ×2 (08:28→17:55)
[2020-07-18] MEDS: ACIDOPHILUS/BULGARICUS CHEW TAB PO SCH (08:28)
[2020-07-18] MEDS: ASPIRIN 81 MG TAB.CHEW PO SCH (08:28)
[2020-07-18] MEDS: ANASTROZOLE 1 MG TABLET PO SCH (08:29)
[2020-07-18] MEDS: ENOXAPARIN SODIUM 40 MG/0.4 ML DISP.SYRIN SQ SCH (08:29)
[2020-07-18] MEDS: MULTIVIT, IRON, MIN NO. 8, FA TABLET PO SCH (08:31)
[2020-07-18] MEDS: CHOLECALCIFEROL 1,000 UNIT TABLET PO SCH (08:31)
[2020-07-18] MEDS: INSULIN REGULAR, HUMAN 300 UNIT/3 ML VIAL SQ PRN (08:31)
[2020-07-18] MEDS: DOCUSATE SODIUM 100 MG CAPSULE PO SCH ×3 (08:31→17:55)
[2020-07-18] MEDS: OLANZAPINE 5 MG TABLET PO SCH (08:35)
[2020-07-18] MEDS: DONEPEZIL 10 MG TABLET PO SCH (08:37)
[2020-07-18] MEDS: METOPROLOL SUCCINATE XL 50 MG TAB.SR.24H PO SCH (09:00)
[2020-07-18] MEDS: LOSARTAN POTASSIUM 50 MG TABLET PO SCH (09:00)
[2020-07-18] MEDS: AMLODIPINE 5 MG TABLET PO SCH (09:00)
--- NOTE | 2020-07-18 09:00 | NUR ---
Pt daughter was called to give updates on pt and video chat with pt.
--- NOTE | 2020-07-18 13:00 | NUR ---
pt pulled out midline.
[2020-07-18] MEDS: SERTRALINE HCL 50 MG TABLET PO SCH (17:55)
--- NOTE | 2020-07-18 19:27 | NUR ---
pt resting in bed, constantly gets up to walk to the restroom or transfer to chair. A/Ox2, forgetful. Pt on room air saturating at 98%, no sign of distress, no reports of pain at this time. SR on tele monitor, bed in low and locked position, call light within reach, bed alarm on. Isolation an safety precautions in place. Will endorse to oncoming nurse.
[2020-07-18 19:50] VITALS: BP 130/63
[2020-07-18] MEDS: ATORVASTATIN 40 MG TABLET PO SCH (21:13)
[2020-07-18] MEDS: LATANOPROST OPHT DROP 2.5 ML BOTTLE LEFTEYE SCH (21:14)
--- NOTE | 2020-07-18 21:20 | NUR ---
Patient awake alert x2 confused and forgetful.Re-oriented and re directed rendered.No s/s of distress noted at this time.On RA.New midline was inserted on right upper arm 18 g .D5 W running at 80ml/hr.Tolerated well. Due meds given.SR on tele monitor.Continue on isolation for covid. Safety measures in place.Will continue to monitor.
[2020-07-18] MEDS: INSULIN GLARGINE,HUM 300 UNITS/3 ML CARTRIDGE SQ SCH (22:00)
[2020-07-18 22:08] LABS: EOSINOPHILS % (MANUAL) 1 % (0-8); LYMPHOCYTES % (MANUAL) 56 % (20-40); MONOCYTES % (MANUAL) 7 % (2-10); NEUTROPHILS % (MANUAL) 36 % (42-75)
[2020-07-19 00:49] VITALS: BP 130/66
[2020-07-19 04:15] VITALS: BP 149/64
[2020-07-19 05:33] LABS: *BILIRUBIN,URIN NEGATIVE (NEGATIVE); *CLARITY,URINE CLEAR (CLEAR); *COLOR,URINE YELLOW (YELLOW); *KETONES,URINE NEGATIVE (NEGATIVE); *UROBILINOGEN,URINE 0.2 E.U./dl (NORMAL); LEUKOCYTE ESTERASE ,URINE 1+ (NEGATIVE); NITRITE, URINE NEGATIVE (NEGATIVE); PH,URINE 6.5 (5.0-8.0); UGLUCOSE NEGATIVE (NEGATIVE)
[2020-07-19 05:44] LABS: *BLOOD, URINE TRACE (NEGATIVE)
[2020-07-19 05:45] LABS: BACTERIA,URINE NONE SEEN /HPF (NONE SEEN); RBC,URINE 0-3 /HPF (0-3); SQUAMOUS EPITHELIAL CELL,UR NONE SEEN /HPF (NONE SEEN); WBC,URINE 0-3 /HPF (0-3)
[2020-07-19] MEDS: PANTOPRAZOLE SODIUM 40 MG TABLET.DR PO SCH (06:03)
[2020-07-19] MEDS: BLOOD SUGAR DIAGNOSTIC 1 EACH STRIP VI SCH ×4 (06:30→20:41)
[2020-07-19 06:48] LABS: BASOPHILS # (AUTO) 0.1 K/uL (0.0-8.0); BASOPHILS % (AUTO) 1.2 % (0.0-2.0); EOSINOPHILS # (AUTO) 0.1 K/uL (0.0-0.7); EOSINOPHILS % (AUTO) 2.4 % (0.0-7.0); HEMATOCRIT 37.1 % (31.2-41.9); HEMOGLOBIN 11.9 g/dL (10.9-14.3); LYMPHOCYTES # (AUTO) 1.7 K/uL (20.0-40.0); LYMPHOCYTES % (AUTO) 36.5 % (20.5-51.5); MEAN CORPUSCULAR HEMOGLOBIN 30.6 uug (24.7-32.8); MEAN CORPUSCULAR HGB CONC 32 g/dL (32.3-35.6); MEAN CORPUSCULAR VOLUME 95.1 fL (75.5-95.3); MONOCYTES # (AUTO) 1.1 K/uL (2.0-10.0); MONOCYTES % (AUTO) 22.4 % (0.0-11.0); NEUTROPHILS # (AUTO) 1.8 K/uL (1.8-8.9); NEUTROPHILS % (AUTO) 37.5 % (38.5-71.5); PLATELET COUNT (AUTO) 269 K/uL (179-408); WHITE BLOOD COUNT (AUTO) 4.7 K/uL (3.8-11.8)
--- NOTE | 2020-07-19 07:30 | NUR ---
Pt resting in bed, bed in low fowlers position. Awake alert and oriented x2, NSR on tele monitor, pt on room air saturating at 98%, no signs of distress noted. No reports of pain, IV access on the right upper arm midline 18g D5W, IVF infusing at 80cc. Bed in low and locked position, call light within reach, safety and isolation precautions in place. Will continue to monitor.
[2020-07-19] MEDS: METOPROLOL SUCCINATE XL 50 MG TAB.SR.24H PO SCH (09:24)
[2020-07-19] MEDS: MEMANTINE HCL 10 MG TABLET PO SCH ×2 (09:24→17:13)
[2020-07-19] MEDS: DOCUSATE SODIUM 100 MG CAPSULE PO SCH ×3 (09:24→17:13)
[2020-07-19] MEDS: ASPIRIN 81 MG TAB.CHEW PO SCH (09:24)
[2020-07-19] MEDS: DONEPEZIL 10 MG TABLET PO SCH (09:24)
[2020-07-19] MEDS: OLANZAPINE 5 MG TABLET PO SCH (09:24)
[2020-07-19] MEDS: LOSARTAN POTASSIUM 50 MG TABLET PO SCH (09:24)
[2020-07-19] MEDS: CHOLECALCIFEROL 1,000 UNIT TABLET PO SCH (09:24)
[2020-07-19] MEDS: MULTIVIT, IRON, MIN NO. 8, FA TABLET PO SCH (09:24)
[2020-07-19] MEDS: ACIDOPHILUS/BULGARICUS CHEW TAB PO SCH (09:24)
[2020-07-19] MEDS: PROTEIN SUPPLEMENT (PROSTAT) 30 ML LIQUID PO SCH (09:25)
[2020-07-19] MEDS: ANASTROZOLE 1 MG TABLET PO SCH (09:26)
[2020-07-19] MEDS: ENOXAPARIN SODIUM 40 MG/0.4 ML DISP.SYRIN SQ SCH (09:26)
--- NOTE | 2020-07-19 09:50 | NUR ---
Pt daughter, Jerica, called to video chat with her mom. Gave daughter updates on pt, will continue to monitor.
[2020-07-19 11:30] VITALS: BP 111/66
[2020-07-19 12:09] LABS: CREATININE 0.8 mg/dL (0.6-1.3); POTASSIUM 3.7 mmol/L (3.5-5.1)
[2020-07-19] MEDS: IV D5W 1000ML 1,000 ML IV PRN (12:55)
--- NOTE | 2020-07-19 14:30 | NUR ---
Blood present in tissue when pt blows her nose, notified.
[2020-07-19 16:00] VITALS: BP 137/53
[2020-07-19] MEDS: SERTRALINE HCL 50 MG TABLET PO SCH (17:13)
[2020-07-19 17:24] LABS: EOSINOPHILS % (MANUAL) 1 % (0-8); LYMPHOCYTES % (MANUAL) 36 % (20-40); MONOCYTES % (MANUAL) 18 % (2-10); NEUTROPHILS % (MANUAL) 45 % (42-75)
--- NOTE | 2020-07-19 19:34 | NUR ---
pt awake alert and oriented x2-3, some reorientation needed. Pt has poor appetite. NSR on tele monitor, pt on room air saturating at 98%, no signs of distress noted, not pain reported at this time. IV access on the right UA midline, IVF infusing D5W at 80cc. Bed in low and locked position, call light within reach, safety, fall and isolation precautions in place. Will endorse to oncoming nurse.
[2020-07-19] MEDS: ATORVASTATIN 40 MG TABLET PO SCH (20:42)
[2020-07-19] MEDS: INSULIN GLARGINE,HUM 300 UNITS/3 ML CARTRIDGE SQ SCH (20:52)
[2020-07-19] MEDS: LATANOPROST OPHT DROP 2.5 ML BOTTLE LEFTEYE SCH (21:00)
[2020-07-19 21:59] VITALS: BP 124/46
[2020-07-20 01:13] VITALS: BP 101/49
[2020-07-20] MEDS: IV D5W 1000ML 1,000 ML IV PRN (04:14)
[2020-07-20] MEDS: PANTOPRAZOLE SODIUM 40 MG TABLET.DR PO SCH (06:10)
--- NOTE | 2020-07-20 06:59 | NUR ---
End of Shift: Patient slept thru the night. AOx2-3, some reorientation needed. NSR on tele monitor, pt on room air saturating at 96%, no signs of distress noted, no pain reported at this time. All meds given as ordered. IV access on the right UA midline, IVF infusing D5W at 80cc. Bed in low and locked position, call light within reach, safety, fall and isolation precautions in place. Will endorse to day shift nurse.
[2020-07-20 07:19] LABS: BASOPHILS % (AUTO) 0.9 % (0.0-2.0); EOSINOPHILS # (AUTO) 0.1 K/uL (0.0-0.7); EOSINOPHILS % (AUTO) 1.5 % (0.0-7.0); HEMATOCRIT 35.7 % (31.2-41.9); HEMOGLOBIN 11.6 g/dL (10.9-14.3); LYMPHOCYTES # (AUTO) 1.8 K/uL (20.0-40.0); LYMPHOCYTES % (AUTO) 37.7 % (20.5-51.5); MEAN CORPUSCULAR HEMOGLOBIN 30.9 uug (24.7-32.8); MEAN CORPUSCULAR HGB CONC 33 g/dL (32.3-35.6); MEAN CORPUSCULAR VOLUME 94.6 fL (75.5-95.3); MONOCYTES % (AUTO) 19.9 % (0.0-11.0); PLATELET COUNT (AUTO) 279 K/uL (179-408); RED BLOOD CELL COUNT(AUTO) 3.77 MIL/uL (3.63-4.92); WHITE BLOOD COUNT (AUTO) 4.9 K/uL (3.8-11.8)
[2020-07-20] MEDS: BLOOD SUGAR DIAGNOSTIC 1 EACH STRIP VI SCH ×3 (07:29→15:38)
[2020-07-20 07:35] LABS: CREATININE 0.8 mg/dL (0.6-1.3); MAGNESIUM 1.7 mg/dL (1.8-2.4); PHOSPHOROUS 3.7 mg/dL (2.5-4.9); POTASSIUM 3.6 mmol/L (3.5-5.1)
[2020-07-20] MEDS: CHOLECALCIFEROL 1,000 UNIT TABLET PO SCH (08:20)
[2020-07-20] MEDS: ACIDOPHILUS/BULGARICUS CHEW TAB PO SCH (08:20)
[2020-07-20] MEDS: PROTEIN SUPPLEMENT (PROSTAT) 30 ML LIQUID PO SCH (08:20)
[2020-07-20] MEDS: MULTIVIT, IRON, MIN NO. 8, FA TABLET PO SCH (08:20)
[2020-07-20] MEDS: ASPIRIN 81 MG TAB.CHEW PO SCH (08:20)
[2020-07-20] MEDS: MEMANTINE HCL 10 MG TABLET PO SCH ×2 (08:20→16:34)
[2020-07-20] MEDS: DONEPEZIL 10 MG TABLET PO SCH (08:20)
[2020-07-20] MEDS: METOPROLOL SUCCINATE XL 50 MG TAB.SR.24H PO SCH (08:20)
[2020-07-20] MEDS: DOCUSATE SODIUM 100 MG CAPSULE PO SCH ×3 (08:20→16:34)
[2020-07-20] MEDS: OLANZAPINE 5 MG TABLET PO SCH (08:20)
[2020-07-20] MEDS: LOSARTAN POTASSIUM 50 MG TABLET PO SCH (08:21)
[2020-07-20] MEDS: ENOXAPARIN SODIUM 40 MG/0.4 ML DISP.SYRIN SQ SCH (08:23)
[2020-07-20] MEDS: ANASTROZOLE 1 MG TABLET PO SCH (08:23)
[2020-07-20] MEDS: MAGNESIUM SULFATE/D5W 100 ML IV SCH ×2 (09:27→10:07)
[2020-07-20 11:15] VITALS: BP 117/53
[2020-07-20] MEDS: INSULIN REGULAR, HUMAN 300 UNIT/3 ML VIAL SQ PRN (11:16)
[2020-07-20 15:44] LABS: EOSINOPHILS % (MANUAL) 1 % (0-8); LYMPHOCYTES % (MANUAL) 37 % (20-40); MONOCYTES % (MANUAL) 20 % (2-10); NEUTROPHILS % (MANUAL) 42 % (42-75)
[2020-07-20 16:00] VITALS: BP 122/62
[2020-07-20] MEDS: SERTRALINE HCL 50 MG TABLET PO SCH (17:05)
[2020-07-20] MEDS ORDERED: ATOR10TA PO (17:09)
[2020-07-20] MEDS ORDERED: PROT30LI PO (17:09)
[2020-07-20] MEDS ORDERED: RIVA10TA PO (17:09)
[2020-07-20] MEDS ORDERED: MENT71OI TOP (17:09)
[2020-07-20] MEDS ORDERED: LATA2.5D2 LEFTEYE (17:09)
[2020-07-20] MEDS ORDERED: DOCU-141 PO (17:09)
[2020-07-20] MEDS ORDERED: PANT40TA2 PO (17:09)
--- NOTE | 2020-07-20 18:44 | NUR ---
dc orders received noted and carried out,dc midline per md orders,dc instruction and rn report given to the [facility] ,pt left the facility via ambulances in stable condition
== END 2020-07-20 18:50 | DRG 177 ==
LOC: ER 17:52 → TELE3 23:35
PROVIDERS: ADMIT Nurse Practitioner Family; ATTEND Internal Medicine
PROC: 05H533Z Insertion of Infusion Device into Right Subclavian Vein, Percutaneous Approach (ICD-10-PCS; 2020-07-16)
PROC: B546ZZA Ultrasonography of Right Subclavian Vein, Guidance (ICD-10-PCS; 2020-07-16)
PROC: XW033E5 Introduction of Remdesivir Anti-infective into Peripheral Vein, Percutaneous Approach, New Technology Group 5 (ICD-10-PCS; principal; 2020-07-17)
PROC: 05H533Z Insertion of Infusion Device into Right Subclavian Vein, Percutaneous Approach (ICD-10-PCS; 2020-07-18)
PROC: B546ZZA Ultrasonography of Right Subclavian Vein, Guidance (ICD-10-PCS; 2020-07-18)
DX: U07.1 COVID-19 (principal); J12.82 Pneumonia due to coronavirus disease 2019; E43 Unspecified severe protein-calorie malnutrition; G92 Toxic encephalopathy; J96.01 Acute respiratory failure with hypoxia; J15.9 Unspecified bacterial pneumonia; E87.0 Hyperosmolality and hypernatremia; D68.69 Other thrombophilia; N17.9 Acute kidney failure, unspecified; E86.0 Dehydration; E87.6 Hypokalemia; C50.911 Malignant neoplasm of unspecified site of right female breast; E11.9 Type 2 diabetes mellitus without complications; E83.42 Hypomagnesemia; I25.10 Atherosclerotic heart disease of native coronary artery without angina pectoris; R62.7 Adult failure to thrive; I10 Essential (primary) hypertension; Z90.49 Acquired absence of other specified parts of digestive tract; Z79.82 Long term (current) use of aspirin; Z79.811 Long term (current) use of aromatase inhibitors; K57.90 Diverticulosis of intestine, part unspecified, without perforation or abscess without bleeding; Z79.4 Long term (current) use of insulin; E88.09 Other disorders of plasma-protein metabolism, not elsewhere classified; Z68.26 Body mass index [BMI] 26.0-26.9, adult; M48.00 Spinal stenosis, site unspecified; R53.1 Weakness; Z92.21 Personal history of antineoplastic chemotherapy
CPT/HCPCS: 36415; 36600; 70030-TC; 70450; 71045; 83605; 83615; 83735; 84100; 85025; 85730; 86140; 86300; 87040; 87086; 87400; 93005; A4663; C1758; G0378; J1650; J2060; J2543; J3370; J3475; J3480; J7040; J7050; J7060; J7070; U0003